=== PATIENT | male | born 1970 | race Caucasian/White ===

== ENCOUNTER 2017-05-08 15:53 | Emergency (ER) | payer BC ==
[2017-05-08 16:03] VITALS: BP 144/80
--- NOTE | 2017-05-08 16:10 | UC ---
Back Pain HPI - HPI Summary HPI Summary: 46 YEAR OLD MALE PRESENTS WITH COMPLAINS OF BACK PAIN AFTER PLAYING SOCCER. - History of Current Complaint Chief Complaint: UCBackPain Stated Complaint: BACK INJURY Time Seen by Provider: 05/08/17 16:05 Hx Obtained From: Patient Onset/Duration: Sudden Onset Timing: Constant Severity Initially: Moderate Severity Currently: Moderate Pain Scale Used: 0-10 Numeric - 5 Character: Sharp Aggravating Factor(s): Movement - Allergies/Home Medications Allergies/Adverse Reactions: Allergies Allergy/AdvReac Type Severity Reaction Status Date / Time No Known Allergies Allergy Verified 05/08/17 16:00 PMH/Surg Hx/FS Hx/Imm Hx Previously Healthy: Yes - Surgical History Surgical History: None - Social History Alcohol Use: Occasionally Substance Use Type: None Smoking Status (MU): Never Smoked Tobacco - Immunization History Most Recent Tetanus Shot: UNSURE Review of Systems Constitutional: Negative Skin: Negative Eyes: Negative ENT: Negative Respiratory: Negative Cardiovascular: Negative Gastrointestinal: Negative Genitourinary: Negative Motor: Negative Neurovascular: Negative Musculoskeletal: Other: - LOWER BACK PAIN Neurological: Negative Psychological: Negative All Other Systems Reviewed And Are Negative: Yes Physical Exam Triage Information Reviewed: Yes Vital Signs: Initial Vital Signs Temp 36.6 C 05/08/17 16:01 Pulse 68 05/08/17 16:01 Resp 15 05/08/17 16:01 BP 144/80 05/08/17 16:01 Pulse Ox 100 05/08/17 16:01 Eye Exam: Normal ENT Exam: Normal Dental Exam: Normal Neck exam: Normal Neck: Positive: 1 Respiratory Exam: Normal Cardiovascular Exam: Normal Abdominal Exam: Normal Musculoskeletal: Positive: Strength Limited @, ROM Limited @, Other: - LOWE BACK PAIN Neurological Exam: Normal Psychological Exam: Normal Skin Exam: Normal Back Pain Course/Dx - Differential Dx/Diagnosis Provider Diagnoses: LOWER BACK PAIN. LOWER BACK SPASM Discharge - Discharge Plan Condition: Stable Disposition: HOME Prescriptions: Methocarbamol TAB* [Robaxin 500 MG TAB*] 500 mg PO TID PRN #30 tab PRN Reason: Spasms - Back Methylprednisolone [Medrol Dosepak 4 MG*] 4 mg PO .SEE BRYAN INSTRUCTION #21 tab Patient Education Materials: Sacroiliitis (ED), Muscle Spasm (ED) Referrals: Sebastian Patterson MD [Primary Care Provider] -
[2017-05-08] MEDS ORDERED: methylPREDNISolone 125 MG* 2 ML VIAL IV ONE (16:11)
== END 2017-05-08 16:47 | disposition home or self-care (01) ==
LOC: UCEAST 15:53
DX: M54.5 Low back pain (principal); M62.830 Muscle spasm of back
CPT/HCPCS: 96372; 99212; G0463; J2930

== ENCOUNTER 2022-06-20 12:04 | Observation (INO) ==
[~2022-06-20 12:04] MED LIST: Buffered Lidocaine 1% SYRIN 1 ml INTRADERM ONE; Lactated Ringers 1000 ml BAG 1,000 ML IV SCH
[2022-06-20] MEDS ORDERED: Midazolam 2 mg/2 ml VIAL 1 mg/ml 2 ml VIAL (2 mg) ONE (12:53)
[2022-06-20] MEDS ORDERED: Ketamine HCL 50 mg/ml 10 ml VIAL (500 MG) ONE (13:48)
[2022-06-20] MEDS ORDERED: Magnesium Hydroxide LIQ 30 ML UDC PO PRN (15:04)
[2022-06-20] MEDS ORDERED: Ondansetron ODT 4 mg TAB 4 MG TAB PO PRN (15:04)
[2022-06-20] MEDS ORDERED: Lactulose 30 ml UDC PO PRN (15:04)
[2022-06-20] MEDS ORDERED: Morphine 2 MG/ML SYRINGE IV PRN (15:04)
[2022-06-20] MEDS ORDERED: Ondansetron 4 mg VIAL 2 MG/ML 2 ml VIAL IV PRN ×2 (15:04→16:20)
[2022-06-20] MEDS ORDERED: fentaNYL 100 mcg/2 ml 50 MCG/ML VIAL ONE ×2 (15:29→16:52)
[2022-06-20] MEDS ORDERED: Propofol 10 MG/ML 20 ML BTL ONE (15:29)
[2022-06-20] MEDS ORDERED: Naloxone 0.4 mg VIAL 0.4 mg/ml 1 ml VIAL IV PRN (16:20)
[2022-06-20] MEDS ORDERED: Morphine 4 MG/ML VIAL (1 ml) IV PRN (16:20)
[2022-06-20] MEDS ORDERED: fentaNYL 100 mcg/2 ml 50 MCG/ML VIAL IV PRN (16:20)
[2022-06-20] MEDS: Lactated Ringers 1000 ml BAG 1,000 ML IV SCH (17:48)
[2022-06-20] MEDS: Magnesium Hydroxide LIQ 30 ML UDC PO SCH (21:09)
[2022-06-20] MEDS: ceFAZolin 1 GM ADVAN 1 GM in NS 0.9% 50 ML 50 ML IVPB SCH (21:55)
[2022-06-21] MEDS: Lactated Ringers 1000 ml BAG 1,000 ML IV SCH (03:40)
[2022-06-21] MEDS: ceFAZolin 1 GM ADVAN 1 GM in NS 0.9% 50 ML 50 ML IVPB SCH ×2 (05:31→13:20)
[2022-06-21 07:41] LABS: Hematocrit 36 % (42-52); Hemoglobin 12.3 g/dL (14.0-18.0); Mean Platelet Volume 9.4 fL (7.4-10.4); Platelet Count 192 10^3/uL (150-450)
[2022-06-21 07:59] LABS: Calcium 8.5 mg/dL (8.6-10.3); Potassium 3.8 mmol/L (3.5-5.0); eGFR CKD-EPI 91.2 (>60)
[2022-06-21] MEDS ORDERED: Vitamin THERAPEUTIC TAB PO SCH (09:00)
[2022-06-21] MEDS: Magnesium Hydroxide LIQ 30 ML UDC PO SCH (09:27)
[2022-06-21 11:29] VITALS: BP 122/62
== END 2022-06-21 13:47 | disposition home or self-care (01) ==
LOC: INTOOBSV 12:04 → AA 12:04 → SSU 17:35
PROVIDERS: ADMIT Orthopaedic Surgery Adult Reconstructive Orthopaedic Surgery; ATTEND Orthopaedic Surgery Adult Reconstructive Orthopaedic Surgery